=== PATIENT | female | born 1970 | race Caucasian/White ===

== ENCOUNTER → 2018-06-07 | Outpatient (CLI) | payer OTHER ==
--- NOTE | 2018-06-09 14:03 | MM ---
Reason for exam: screening (asymptomatic). Last mammogram was performed 1 year and 1 month ago. Physical Findings: A clinical breast exam by your physician is recommended on an annual basis and results should be correlated with mammographic findings. MG 3D Screening Mammo W/Cad Bilateral CC and MLO view(s) were taken. Prior study comparison: May 11, 2017, mammogram, performed at [facility]. April 14, 2016, mammogram, performed at [facility]. The breast tissue is heterogeneously dense. This may lower the sensitivity of mammography. There are benign appearing round calcifications bilaterally. There is no discrete abnormality. ASSESSMENT: Benign, BI-RAD 2 RECOMMENDATION: Routine screening mammogram of both breasts in 1 year.
== END | disposition home or self-care (01) ==
LOC: RADMAMWWP 16:13
PROVIDERS: ATTEND Obstetrics & Gynecology
DX: Z12.31 Encounter for screening mammogram for malignant neoplasm of breast (principal); Z80.3 Family history of malignant neoplasm of breast
CPT/HCPCS: 77063; 77067

== ENCOUNTER → 2019-07-10 | Outpatient (CLI) | payer OTHER ==
--- NOTE | 2019-07-11 14:55 | MM ---
Reason for exam: screening (asymptomatic). Last mammogram was performed 1 year and 1 month ago. History: Family history of breast cancer in mother at age 76. Physical Findings: A clinical breast exam by your physician is recommended on an annual basis and results should be correlated with mammographic findings. MG 3D Screening Mammo W/Cad Bilateral CC and MLO view(s) were taken. Prior study comparison: June 07, 2018, bilateral MG 3d screening mammo w/cad. May 11, 2017, mammogram, performed at [facility]. The breast tissue is heterogeneously dense. This may lower the sensitivity of mammography. No significant changes when compared with prior studies. ASSESSMENT: Benign, BI-RAD 2 RECOMMENDATION: Routine screening mammogram of both breasts in 1 year.
== END | disposition home or self-care (01) ==
LOC: RADMAMWWP 16:53
PROVIDERS: ATTEND Obstetrics & Gynecology
DX: Z12.31 Encounter for screening mammogram for malignant neoplasm of breast (principal)
CPT/HCPCS: 77063; 77067

== ENCOUNTER → 2020-10-01 | Outpatient (CLI) | payer OTHER ==
--- NOTE | 2020-10-02 10:53 | MM ---
Reason for exam: screening (asymptomatic). Last mammogram was performed 1 year and 3 months ago. History: Family history of breast cancer in mother at age 76. Physical Findings: A clinical breast exam by your physician is recommended on an annual basis and results should be correlated with mammographic findings. MG 3D Screening Mammo W/Cad Bilateral CC and MLO view(s) were taken. Prior study comparison: July 10, 2019, bilateral MG 3d screening mammo w/cad. June 07, 2018, bilateral MG 3d screening mammo w/cad. The breast tissue is extremely dense which could obscure a lesion on mammography. Finding #1: There is an oval mass located 4 cm from the nipple in the anterior middle position of the left breast, MLO 19/55. Finding #2: There are typically benign round calcifications in both breasts. ASSESSMENT: Incomplete: need additional imaging evaluation, BI-RAD 0 RECOMMENDATION: Special view mammogram and ultrasound of the right breast. [facility] will attempt to contact patient to return for supplemental views and ultrasound.
== END | disposition home or self-care (01) ==
LOC: RADMAMWWP 15:43
PROVIDERS: ATTEND Obstetrics & Gynecology
DX: Z12.31 Encounter for screening mammogram for malignant neoplasm of breast (principal); Z80.3 Family history of malignant neoplasm of breast
CPT/HCPCS: 77063; 77067

== ENCOUNTER → 2020-10-14 | Outpatient (CLI) | payer OTHER ==
--- NOTE | 2020-10-15 09:44 | MM ---
Reason for exam: additional evaluation requested from abnormal screening. Last mammogram was performed less than 1 month ago. History: Family history of breast cancer in mother at age 76 and breast cancer in maternal aunt at age 60. Physical Findings: Nurse did not find any significant physical abnormalities on exam. MG 3D Work Up W/Cad RT Spot compression MLO and ML view(s) were taken of the right breast. Prior study comparison: October 01, 2020, bilateral MG 3d screening mammo w/cad. July 10, 2019, bilateral MG 3d screening mammo w/cad. The breast tissue is heterogeneously dense. This may lower the sensitivity of mammography. 6mm circumscribed nodule persists on 3D lateral anterior to middle depth, unable to localize on CC view. These results were verbally communicated with the patient and result sheet given to the patient on 10/14/20. ASSESSMENT: Incomplete: need additional imaging evaluation, BI-RAD 0 RECOMMENDATION: Ultrasound of the right breast.
--- NOTE | 2020-10-15 09:46 | USB ---
Reason for exam: additional evaluation requested from abnormal screening. History: Family history of breast cancer in mother at age 76 and breast cancer in maternal aunt at age 60. US Breast Workup Limited RT Right limited breast ultrasound including focal area of concern, retroareolar and axilla demonstrates a 0.4 x 0.4 x 0.4cm round lesion at 9 o'clock. Suspected cyst embedded in dense tissue. Echoes could be artifactual or could represent debris. Scanned 3-9 o'clock, Zone A. These results were verbally communicated with the patient and result sheet given to the patient on 10/14/20. ASSESSMENT: Probably benign, BI-RAD 3 RECOMMENDATION: Follow-up diagnostic mammogram of the right breast in 6 months.
== END | disposition home or self-care (01) ==
LOC: RADMAMWWP 13:34
PROVIDERS: ATTEND Obstetrics & Gynecology
DX: R92.8 Other abnormal and inconclusive findings on diagnostic imaging of breast (principal)
CPT/HCPCS: 77061; 77065

== ENCOUNTER → 2021-04-28 | Outpatient (CLI) | payer OTHER ==
--- NOTE | 2021-04-29 08:42 | MM ---
Reason for exam: follow-up at short interval from prior study. Last mammogram was performed 6 months ago. History: Patient history of other cancer. Family history of breast cancer in mother at age 76 and breast cancer in maternal aunt at age 60. Physical Findings: Nurse did not find any significant physical abnormalities on exam. MG 3D Diag Mammo W/Cad RT CC and MLO view(s) were taken of the right breast. Prior study comparison: October 14, 2020, right breast MG 3d work up w/cad RT. October 01, 2020, bilateral MG 3d screening mammo w/cad. July 10, 2019, bilateral MG 3d screening mammo w/cad. June 07, 2018, bilateral MG 3d screening mammo w/cad. May 11, 2017, mammogram, performed at [facility]. The breast tissue is heterogeneously dense. This may lower the sensitivity of mammography. The previous central MLO nodularity is no longer seen. No significant new findings when compared with previous films. These results were verbally communicated with the patient and result sheet given to the patient on 04/28/21. ASSESSMENT: Benign, BI-RAD 2 RECOMMENDATION: Return to routine screening mammogram schedule for both breasts. Back on schedule.
== END | disposition home or self-care (01) ==
LOC: RADMAMWWP 14:48
PROVIDERS: ATTEND Obstetrics & Gynecology
DX: R92.8 Other abnormal and inconclusive findings on diagnostic imaging of breast (principal); Z80.3 Family history of malignant neoplasm of breast
CPT/HCPCS: 77061; 77065

== ENCOUNTER → 2022-04-15 | Outpatient (CLI) | payer OTHER ==
--- NOTE | 2022-04-15 15:20 | MM ---
Reason for Exam: Screening (asymptomatic). Last mammogram was performed 1 year(s) and 6 month(s) ago. Patient History: Menarche at age 11. First Full-Term at age 29. Late child-bearing (after 30). Perimenopausal. Other cancer. Maternal aunt had breast cancer, age 60. Mother had breast cancer, age 76. Risk Values: Karis 5 year model risk: 2.2%. NCI Lifetime model risk: 16.5%. Prior Study Comparison: 10/01/2020 Bilateral Screening Mammogram, [facility]. 10/14/2020 Right Diagnostic Mammogram, [facility]. 04/28/2021 Right Diagnostic Mammogram, [facility]. Tissue Density: The breast tissue is heterogeneously dense. This may lower the sensitivity of mammography. Findings: Analyzed By CAD. There is no suspicious group of microcalcifications or new suspicious mass in either breast. Overall Assessment: Benign, BI-RAD 2 Management: Screening Mammogram of both breasts in 1 year. A clinical breast exam by your physician is recommended on an annual basis and results should be correlated with mammographic findings. Electronically signed and approved by: Lewis Garza M.D. Radiologis
== END | disposition home or self-care (01) ==
LOC: RADMAMWWP 07:11
PROVIDERS: ATTEND Obstetrics & Gynecology
DX: Z08 Encounter for follow-up examination after completed treatment for malignant neoplasm (principal); Z80.3 Family history of malignant neoplasm of breast
CPT/HCPCS: 77063; 77067

== ENCOUNTER → 2023-04-20 | Outpatient (CLI) | payer OTHER ==
--- NOTE | 2023-04-21 20:18 | MM ---
Reason for Exam: Screening (asymptomatic). Last screening mammogram was performed 12 month(s) ago. Patient History: Menarche at age 11. First Full-Term at age 29. Late child-bearing (after 30). Perimenopausal. Patient has history of breast feeding. Other cancer. Maternal aunt had breast cancer, age 60. Mother had breast cancer, age 76. Risk Values: Karis 5 year model risk: 2.3%. NCI Lifetime model risk: 16.2%. Prior Study Comparison: 10/14/2020 Right Diagnostic Mammogram, [facility]. 04/28/2021 Right Diagnostic Mammogram, [facility]. 04/15/2022 Bilateral MG 3D screening mammo w/cad, [facility]. Tissue Density: The breast tissue is heterogeneously dense. This may lower the sensitivity of mammography. Findings: Analyzed By CAD. The thickened and elongated configuration of density central and outer aspect of the right CC view middle depth is more pronounced from prior exams. It incompletely disperses on 3-D images. Similarly, smaller asymmetric density lateral aspect right cc view at a middle depth. No clear correlate on the MLO view. Findings may represent a superimposition shadow but further evaluation is recommended. Otherwise, no significant change. Overall Assessment: Incomplete: need additional imaging evaluation, BI-RAD 0 Management: Special View Mammogram of the right breast. Diagnostic Breast Ultrasound of the right breast. Additional views to include spot 3-D CC, 3-D CC rolled medial, and 3-D ML views. Ultrasound lateral half of the right breast. [facility] will attempt to contact patient to return for supplemental views and ultrasound if indicated. Electronically signed and approved by: Kevin Jimenes M.D. Radiologist
== END | disposition home or self-care (01) ==
LOC: RADMAMWWP 09:39
PROVIDERS: ATTEND Obstetrics & Gynecology
DX: Z12.31 Encounter for screening mammogram for malignant neoplasm of breast (principal); Z80.3 Family history of malignant neoplasm of breast
CPT/HCPCS: 77063; 77067

== ENCOUNTER → 2023-04-26 | Outpatient (CLI) | payer OTHER ==
--- NOTE | 2023-04-26 08:14 | MM ---
Reason for Exam: Additional evaluation requested from prior study. Last screening mammogram was performed less than 1 month ago. Patient History: Menarche at age 11. First Full-Term at age 29. Late child-bearing (after 30). Perimenopausal. Patient has history of breast feeding. Other cancer. Maternal aunt had breast cancer, age 60. Mother had breast cancer, age 76. Risk Values: Karis 5 year model risk: 2.3%. NCI Lifetime model risk: 16.2%. Tissue Density: Right: The breast tissue is heterogeneously dense. This may lower the sensitivity of mammography. Findings: Analyzed By CAD. Asymmetry of breast is less well appreciated but is felt to persist lateral aspect of the breast on right CC view. Left breast posterior marked on prior does not have a masslike appearance on 3-D imaging. No new suspicious masses, calcifications or distortions. Overall Assessment: Incomplete: need additional imaging evaluation, BI-RAD 0 Management: Diagnostic Breast Ultrasound of the right breast. Results were given to the patient verbally at the time of exam. Patient should continue monthly self-breast exams. A clinical breast exam by your physician is recommended on an annual basis. This exam should not preclude additional follow-up of suspicious palpable abnormalities. Note on Karis scores and lifetime risk: 1. A Karis score greater than 3% is considered moderate risk. If this is the case, consider specialist referral to assess eligibility for a risk reducing agent. 2. If overall lifetime risk for the development of breast cancer is 20% or higher, the patient may qualify for future screening with alternating mammogram and breast MRI. Electronically signed and approved by: Yeyo Barksdale DO
--- NOTE | 2023-04-26 08:27 | USB ---
Reason for Exam: Additional evaluation requested from abnormal screening. Patient History: Menarche at age 11. First Full-Term at age 29. Late child-bearing (after 30). Perimenopausal. Patient has history of breast feeding. Other cancer. Maternal aunt had breast cancer, age 60. Mother had breast cancer, age 76. Risk Values: Karis 5 year model risk: 2.3%. NCI Lifetime model risk: 16.2%. Prior Study Comparison: 10/14/2020 Right Diagnostic Ultrasound, [facility]. 04/28/2021 Right Diagnostic Mammogram, [facility]. 04/15/2022 Bilateral MG 3D screening mammo w/cad, [facility]. 04/20/2023 Bilateral MG 3D screening mammo w/cad, [facility]. Findings: The lateral section of the breast of the right breast, the axilla of the right breast and the retroareolar of the right breast were scanned. Imaged: Ultrasound imaging of: All 4 quadrants, the retroareolar region and axilla. Anechoic clustered cyst at 10:00 4 cm from nipple measuring 4 x 8 x 4 mm No evidence for organizing fluid collection or mass.Imaged: Ultrasound imaging of: All 4 quadrants, the retroareolar region and axilla. Anechoic clustered cyst at 10:00 4 cm from nipple measuring 4 x 8 x 4 mm No evidence foR mass. Overall Assessment: Benign, BI-RAD 2 Management: Screening Mammogram of both breasts in 1 year. A clinical breast exam by your physician is recommended on an annual basis and results should be correlated with mammographic findings. This exam should not preclude additional follow-up of suspicious palpable abnormalities. Results were given to the patient verbally at the time of exam. Electronically signed and approved by: Yeyo Barksdale DO
== END | disposition home or self-care (01) ==
LOC: RADMAMWWP 07:28
PROVIDERS: ATTEND Obstetrics & Gynecology
DX: R92.8 Other abnormal and inconclusive findings on diagnostic imaging of breast (principal); Z80.3 Family history of malignant neoplasm of breast
CPT/HCPCS: 77061; 77065

== ENCOUNTER 2024-02-25 06:37 | Day surgery (SDC) | payer OTHER ==
[2024-02-25 07:11] VITALS: TEMP 97.5
[2024-02-25] MEDS: LACTATED RINGERS 1,000 ML IV SCH (07:16)
[2024-02-25] MEDS ORDERED: PROPOFOL 10 MG/ML 20 ML VIAL IV ONE (07:50)
[2024-02-25] MEDS ORDERED: LIDOCAINE 1% INJ 10MG/ML (20 ML MDV) ONE (07:50)
--- NOTE | 2024-02-25 08:08 | P.PCN ---
Date of Procedure: 02/25/24 Procedure(s) Performed: Brief history: Patient is a pleasant 54-year-old pleasant white female scheduled for an elective upper endoscopy as well as colonoscopy as a part of evaluation of GERD/chronic postprandial diarrhea for the last 3 months duration. Procedure performed: Esophagogastroduodenoscopy with biopsy Colonoscopy biopsy Preoperative diagnosis: GERD Postprandial diarrhea and abdominal pain Anesthesia: MAC Procedure: After informed consent was obtained from the patient was brought into the endoscopy unit and IV sedation was administered by anesthesia under continuous monitoring. Initially upper endoscopy was done. The Olympus GF 160 video endoscope was inserted inserted into the mouth and esophagus intubated without any difficulty and was gradually advanced into the stomach and duodenum and carefully examined. The bulb and second part of the duodenum appeared normal. Went in for the duodenum to evaluate for celiac disease the scope was then withdrawn into the stomach adequately insufflated with air and upon careful examination the antrum had mild gastritis and biopsies were done from this area. Mucosa of the d body, cardia and fundus appeared normal. The scope was then withdrawn into the esophagus. The GE junction was located at 40 cm to the incisors. It appeared itregular with no erythema erosions or ulcerations. Bleeding was a 3 mm of Mathis's appearing mucosa proximal to the GE junction that was biopsied. Rest of the esophagus appeared normal. Patient tolerated the procedure well. At this time the patient continued to remain sedation. Initial digital rectal examination was normal. Olympus CF 160 video colonoscope was then inserted into the rectum and gradually advanced to the cecum without any difficulty. Careful examination was performed as the scope was gradually being withdrawn. Terminal ileum was intubated in 20 cm visualized and appeared normal. The prep was excellent. The cecum, ascending colon, transverse colon, descending colon, sigmoid colon and rectum appeared normal. Biopsies were done from the ascending and descending colon to rule out microscopic/collagenous colitis. Retroflexion was performed in the rectum and no lesions were noted. Patient tolerated the procedure well. Impression: 1. Upper endoscopy revealed mild antral gastritis and short segment Mathis's esophagus 2. Colonoscopy was within normal limits with no evidence of colorectal neoplasia Recommendations: Findings of this examination were discussed with the patient as well as family. She was advised to follow-up with the biopsy results. She will be seen in the office in 2 to 3 weeks.
[2024-02-25 08:49] VITALS: BP 124/63; PULSE 52; RESP 14
== END 2024-02-25 08:49 | disposition home or self-care (01) ==
LOC: ORWHC2ENDO 06:37
PROVIDERS: ATTEND Internal Medicine Gastroenterology
DX: K29.50 Unspecified chronic gastritis without bleeding (principal); K21.9 Gastro-esophageal reflux disease without esophagitis; K52.9 Noninfective gastroenteritis and colitis, unspecified; K22.70 Barrett's esophagus without dysplasia; Z79.899 Other long term (current) drug therapy; Z88.0 Allergy status to penicillin; Z88.2 Allergy status to sulfonamides
CPT/HCPCS: 88305; 45380; 43239; J2001; J2704

== ENCOUNTER → 2024-04-28 | Outpatient (CLI) | payer OTHER ==
--- NOTE | 2024-05-24 13:58 | MM ---
Reason for Exam: Screening (asymptomatic). Last mammogram was performed 1 year(s) and 1 month(s) ago. Patient History: Menarche at age 11. First Full-Term at age 29. Late child-bearing (after 30). Perimenopausal. Patient has history of breast feeding. Other cancer. Maternal grandmother had breast cancer at or over age 50. Mother had breast cancer, age 76. Risk Values: Karis 5 year model risk: 2.4%. NCI Lifetime model risk: 15.9%. Prior Study Comparison: 04/15/2022 Bilateral MG 3D screening mammo w/cad, [facility]. 04/20/2023 Bilateral MG 3D screening mammo w/cad, [facility]. 04/26/2023 Right MG 3D work up w/cad RT, [facility]. Tissue Density: The breasts are heterogeneously dense, which may obscure small masses. Findings: Analyzed By CAD. Right breast: There is no suspicious group of microcalcifications or new suspicious mass. Left breast: There is no suspicious group of microcalcifications or new suspicious mass. Overall Assessment: Negative, BI-RAD 1 Management: Screening Mammogram of both breasts in [address] [facility] will attempt to contact patient to return for supplemental views and ultrasound if indicated. Patient should continue monthly self-breast exams. A clinical breast exam by your physician is recommended on an annual basis. This exam should not preclude additional follow-up of suspicious palpable abnormalities. Note on Karis scores and lifetime risk: 1. A Karis score greater than 3% is considered moderate risk. If this is the case, consider specialist referral to assess eligibility for a risk reducing agent. 2. If overall lifetime risk for the development of breast cancer is 20% or higher, the patient may qualify for future screening with alternating mammogram and breast MRI. Electronically signed and approved by: Yeyo Barksdale DO
== END | disposition home or self-care (01) ==
LOC: RADMAMWWP 07:01
PROVIDERS: ATTEND Internal Medicine Geriatric Medicine
DX: Z12.31 Encounter for screening mammogram for malignant neoplasm of breast (principal); R92.333 Mammographic heterogeneous density, bilateral breasts; Z80.3 Family history of malignant neoplasm of breast
CPT/HCPCS: 77063; 77067

== ENCOUNTER → 2025-01-11 | Outpatient (CLI) | payer BC ==
--- NOTE | 2025-01-11 07:33 | MM ---
Reason for Exam: Screening (asymptomatic). Last screening mammogram was performed 8 month(s) ago. Patient History: Menarche at age 11. First Full-Term at age 29. Late child-bearing (after 30). Perimenopausal. Patient has history of breast feeding. Other cancer. Maternal grandmother had breast cancer at or over age 50. Mother had breast cancer, age 76. Risk Values: Karis 5 year model risk: 2.4%. NCI Lifetime model risk: 15.9%. Prior Study Comparison: 04/20/2023 Bilateral MG 3D screening mammo w/cad, [facility]. 04/26/2023 Right MG 3D work up w/cad RT, [facility]. 04/28/2024 Bilateral MG 3D screening mammo w/cad, [facility]. Tissue Density: The breasts are heterogeneously dense, which may obscure small masses. Findings: Analyzed By CAD. There is no suspicious group of microcalcifications or new suspicious mass in either breast. Overall Assessment: Benign, BI-RAD 2 Management: Screening Mammogram of both breasts in 1 year. . Patient should continue monthly self-breast exams. A clinical breast exam by your physician is recommended on an annual basis. This exam should not preclude additional follow-up of suspicious palpable abnormalities. Note on Karis scores and lifetime risk: 1. A Karis score greater than 3% is considered moderate risk. If this is the case, consider specialist referral to assess eligibility for a risk reducing agent. 2. If overall lifetime risk for the development of breast cancer is 20% or higher, the patient may qualify for future screening with alternating mammogram and breast MRI. [facility], , 01/11/2025 7:29 AM. Electronically signed and approved by: Charly Douglas M.D. Radiologis
== END | disposition home or self-care (01) ==
LOC: RADMAMWWP 07:04
PROVIDERS: ATTEND Internal Medicine Geriatric Medicine
DX: Z12.31 Encounter for screening mammogram for malignant neoplasm of breast (principal); R92.333 Mammographic heterogeneous density, bilateral breasts; Z80.3 Family history of malignant neoplasm of breast
CPT/HCPCS: 77063; 77067